=== PATIENT | female | born 1980 | race American Indian/Alaskan Native ===

== ENCOUNTER 2016-11-27 11:43 | Inpatient (IN) | payer OTHER ==
[2016-11-27 12:34] LABS: Basophils % (Auto) 0.4 % (0.0-1.8); Eosinophils % (Auto) 1.5 % (0.0-4.3); Mean Corpuscular HGB Conc 30 % (30-34); Platelet Count 204 K/mm3 (140-440); Red Blood Count 3.05 M/mm3 (3.65-5.03); White Blood Count 6.6 K/mm3 (4.5-11.0)
[2016-11-27 13:01] LABS: Hematocrit 19.1 % (30.3-42.9); Hemoglobin 5.8 gm/dl (10.1-14.3); Mean Corpuscular Hemoglobin 19 pg (28-32); Mean Corpuscular Volume 63 fl (79-97)
--- NOTE | 2016-11-27 17:14 | Emergency Department Report ---
ED General Adult HPI - General Chief complaint: Vaginal Bleeding Stated complaint: VAGINAL BLEEDING,DIZZY Time Seen by Provider: 11/27/16 16:30 Source: patient Mode of arrival: Ambulatory Limitations: No Limitations - History of Present Illness Initial comments: Patient states that for the last 3 weeks she has had recurrent vaginal bleeding although she is not actively bleeding at this time. She was previously seen and managed by my ROOM COOLER INSTALLER. She has had a previous transfusion at [facility]. She complains of generalized weakness and some dyspnea on exertion for the past few days. She has a history of fibroids. She has not had a prior surgical procedure. -: Gradual, week(s) Consistency: intermittent Improves with: none Worsens with: none Associated Symptoms: shortness of breath, weakness Treatments Prior to Arrival: none - Related Data Previous Rx's Medication Instructions Recorded Last Taken Type Ferrous Fumarate/Docusate(Nf) 1 each PO TID #90 tablet.er 08/19/13 Unknown Rx [Gordo-Sequels 106/50 mg tab] Allergies Allergy/AdvReac Type Severity Reaction Status Date / Time No Known Allergies Allergy Verified 11/27/16 11:49 ED Review of Systems ROS: Stated complaint: VAGINAL BLEEDING,DIZZY Other details as noted in HPI Constitutional: weakness. denies: chills, fever Eyes: denies: eye pain, eye discharge, vision change ENT: denies: ear pain, throat pain Respiratory: SOB with exertion. denies: cough, shortness of breath (not at rest ), wheezing Cardiovascular: denies: chest pain, palpitations Endocrine: no symptoms reported Gastrointestinal: denies: abdominal pain, nausea, diarrhea Genitourinary: denies: urgency, dysuria, discharge Musculoskeletal: denies: back pain, joint swelling, arthralgia Skin: denies: rash, lesions Neurological: denies: headache, weakness, paresthesias Psychiatric: denies: anxiety, depression Hematological/Lymphatic: denies: easy bleeding, easy bruising ED Past Medical Hx - Past Medical History Hx Hypertension: No Hx Heart Attack/AMI: No Hx Congestive Heart Failure: No Hx Diabetes: No Hx Deep Vein Thrombosis: No Hx Pulmonary Embolism: No Hx GERD: No Hx Liver Disease: No Hx Renal Disease: No Hx Sickle Cell Disease: No Hx Arthritis: No Hx Seizures: No Hx Kidney Stones: No Hx Asthma: No Hx COPD: No Hx Tuberculosis: No Hx Dementia: No Hx HIV: No - Surgical History Hx Coronary Stent: No Hx Open Heart Surgery: No Hx Pacemaker: No Hx Internal Defibrillator: No Hx Cholecystectomy: No Hx Appendectomy: No Hx Breast Surgery: No - Social History Smoking Status: Never Smoker Substance Use Type: None - Medications Home Medications: Home Medications Medication Instructions Recorded Confirmed Last Taken Type Ferrous Fumarate/Docusate(Nf) 1 each PO TID #90 tablet.er 08/19/13 Unknown Rx [Gordo-Sequels 106/50 mg tab] ED Physical Exam - General Limitations: No Limitations General appearance: alert, in no apparent distress - Head Head exam: Present: atraumatic, normocephalic - Eye Eye exam: Present: normal appearance. Absent: scleral icterus - ENT ENT exam: Present: mucous membranes moist - Neck Neck exam: Present: normal inspection - Respiratory Respiratory exam: Present: normal lung sounds bilaterally. Absent: respiratory distress - Cardiovascular Cardiovascular Exam: Present: regular rate, normal rhythm. Absent: systolic murmur, diastolic murmur, rubs, gallop - GI/Abdominal GI/Abdominal exam: Present: soft, normal bowel sounds. Absent: distended, tenderness, guarding, rebound, rigid - External exam: Present: other (deferred to ROOM COOLER INSTALLER) - Extremities Exam Extremities exam: Present: normal inspection - Back Exam Back exam: Present: normal inspection - Neurological Exam Neurological exam: Present: alert, oriented X3, CN II-XII intact. Absent: motor sensory deficit - Psychiatric Psychiatric exam: Present: normal affect, normal mood - Skin Skin exam: Present: warm, dry, intact, normal color. Absent: rash ED Course Vital Signs 11/27/16 11/27/16 11:49 16:35 Temperature 98.6 F Pulse Rate 95 H Respiratory 20 20 Rate Blood Pressure 116/53 O2 Sat by Pulse 100 100 Oximetry - Reevaluation(s) Reevaluation #1: Discussed with Dr. Willett, ROOM COOLER INSTALLER. She admitted this patient to her service for transfusion and further evaluation. 11/27/16 17:13 ED Medical Decision Making - Lab Data Result diagrams: 11/27/16 11:55 Laboratory Results - last 24 hr 11/27/16 11/27/16 11/27/16 11:55 11:55 11:59 WBC 6.6 RBC 3.05 L Hgb 5.8 L* Hct 19.1 L* MCV 63 L MCH 19 L MCHC 30 RDW 21.0 H Plt Count 204 Lymph % (Auto) 31.3 [place] % (Auto) 8.0 H Eos % (Auto) 1.5 Baso % (Auto) 0.4 Lymph # 2.1 [place] # 0.5 Eos # 0.1 Baso # 0.0 Seg Neutrophils % 58.8 Seg Neutrophils # 3.9 HCG, Quant < 2 Blood Type O NEGATIVE Antibody Screen Negative Critical care attestation.: If time is entered above; I have spent that time in minutes in the direct care of this critically ill patient, excluding procedure time. ED Disposition Clinical Impression: Symptomatic anemia, Dysfunctional uterine bleeding Fibroids Qualifiers: Uterine leiomyoma location: unspecified location Qualified Code(s): D25.9 - Leiomyoma of uterus, unspecified Disposition: OP ADMIT IP TO THIS HOSP Is pt being admited?: No Does the pt Need Aspirin: No Condition: Stable Referrals: PRIMARY CARE, [Primary Care Provider] - 3-5 Days Time of Disposition: 17:15
[2016-11-27] MEDS ORDERED: NACL 0.9% 500 ML 500 ML IV ONE (17:18)
[2016-11-27 17:20] LABS: Bacteria,Urine 1+ /HPF (Negative); Bilirubin,Urine NEG (Negative); Blood,Urine LG (Negative); Ketones,Urine NEG (Negative); Leukocyte Esterase,Urine NEG (Negative); Mucus,Urine FEW /HPF; Nitrite,Urine NEG (Negative); Protein,Urine <15 mg/dL mg/dL (Negative); Urobilinogen,Urine < 2.0 mg/dL (<2.0)
[2016-11-27 19:03] LABS: INR 1.02 (0.87-1.13); Partial Thromboplastin Time 21.6 Sec. (24.2-36.6)
[2016-11-27 19:35] LABS: Alanine Aminotransferase 12 units/L (7-56); Albumin 3.8 g/dL (3.9-5); Alkaline Phosphatase 63 units/L (35-129); Anion Gap 15 mmol/L; BUN/Creatinine Ratio 8.33; Blood Urea Nitrogen 5 mg/dL (7-17); Calcium 8.6 mg/dL (8.4-10.2); Carbon Dioxide 26 mmol/L (22-30); Chloride 101.4 mmol/L (98-107); Glucose 86 mg/dL (65-100); Potassium 4.7 mmol/L (3.6-5.0); Sodium 138 mmol/L (137-145); Total Protein 7.7 g/dL (6.3-8.2)
[2016-11-27] MEDS ORDERED: BENADRYL PO PRN ×2 (20:25→20:33)
[2016-11-27] MEDS ORDERED: COLACE PO PRN (20:25)
[2016-11-27] MEDS ORDERED: MYLICON PO PRN (20:25)
[2016-11-27] MEDS ORDERED: MILK OF MAGNESIA PO PRN (20:25)
[2016-11-27] MEDS ORDERED: ALUM-MAG HYDROX-SIMETH 200-200-20MG/5ML PO PRN (20:25)
[2016-11-27] MEDS ORDERED: TYLENOL PO PRN (20:25)
--- NOTE | 2016-11-27 20:29 | History and Physical Report ---
History of Present Illness Date of examination: 11/27/16 Date of admission: 11/27/16 17:16 Chief complaint: Dysfunctional uterine bleeding History of present illness: This is a 36-year-old female 1 para 1 who presents to long history of irregular vaginal bleeding. She has a known history of anemia and uterine fibroids. She was previously placed on oral contraceptive pills to control her bleeding however she discontinued the pills when she states her periods became regular. She presents now with some shortness of breath, dizziness, lightheadedness and fatigue. Since her period started 3 weeks ago and she is continued to bleed saturating a pad every 30 minutes for the last 2-1/2 weeks. She also complains of headache. She also states her bleeding is much better today. Her evaluation today reveals a hemoglobin of 5.8. She is admitted for transfusion of packed red blood cells. 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 denies: abnormal PAP smear, chlamydia, gonorrhea, hepatitis B, hepatitis C, herpes, HIV, syphilis, trichomonas Family/Genetic History: other (paternal aunt ovarian cancer diagnosed in menopause) Social history: no significant social history Medications and Allergies Allergies Allergy/AdvReac Type Severity Reaction Status Date / Time No Known Allergies Allergy Verified 11/27/16 11:49 Home Medications Medication Instructions Recorded Confirmed Last Taken Type RX: Ferrous Fumarate/Docusate(Nf) 1 each PO TID #90 tablet.er 08/19/13 Unknown Rx [Gordo-Sequels 106/50 mg tab] Review of Systems All systems: negative Neurological: headaches - Vital Signs Vital signs: Vital Signs Temp Pulse Resp BP Pulse Ox 98.6 F 95 H 20 116/53 100 11/27/16 11:49 11/27/16 11:49 11/27/16 11:49 11/27/16 11:49 11/27/16 11:49 Temp Pulse Resp BP Pulse Ox 98.4 F 62 18 107/58 100 11/27/16 19:20 11/27/16 19:20 11/27/16 19:20 11/27/16 19:20 11/27/16 19:20 - Physical Exam Breasts: Positive: deferred Lungs: Positive: Normal air movement Abdomen: Positive: normal appearance, soft (obese) Genitourinary (Female): Positive: normal external genitalia, normal perenium Vulva: both: normal Uterus: Positive: other (difficult to palpate due to body habitus) Extremities: Positive: normal Results Result Diagrams: 11/27/16 11:55 11/27/16 18:06 Abnormal lab results 11/27/16 11/27/16 Range/Units 18:06 18:06 APTT 21.6 L (24.2-36.6) Sec. BUN 5 L (7-17) mg/dL Creatinine 0.6 L (0.7-1.2) mg/dL Albumin 3.8 L (3.9-5) g/dL All other labs normal. Assessment and Plan - Patient Problems (1) Dysfunctional uterine bleeding Current Visit: Yes Status: Acute Plan to address problem: Will start Provera (2) Fibroids Current Visit: Yes Status: Acute Qualifiers: Uterine leiomyoma location: unspecified location Qualified Code(s): D25.9 - Leiomyoma of uterus, unspecified (3) Symptomatic anemia Current Visit: Yes Status: Acute Plan to address problem: Recheck H&H 2 hours after transfusion is complete. (4) Elevated blood pressure reading Current Visit: Yes Status: Acute
[2016-11-27] MEDS: LACTATED RINGERS 1,000 ML IV SCH (21:16)
[2016-11-27] MEDS ORDERED: PROVERA PO SCH (22:00)
[2016-11-27 23:01] LABS: Hematocrit 23.3 % (30.3-42.9); Hemoglobin 7.2 gm/dl (10.1-14.3)
[2016-11-28 05:02] VITALS: BP 103/50
[2016-11-28] MEDS: LACTATED RINGERS 1,000 ML IV SCH (06:04)
--- NOTE | 2016-11-28 06:23 | Event Note ---
Date: 11/28/16 (discharge assessment) pt w/o complaint VSS Minimal bleeding noted on pad. No c/o s/sx of anemia Pt ambulates w/o dizziness. Post transfusion H&H 10/06 Pt to be d/c with instructions and RX for iron, colace, and Sprintec Pt is to start OCP tonight. F/u in office in 2 weeks. All questions addressed.
--- NOTE | 2016-11-28 06:28 | Discharge Summary ---
Providers - Providers Date of Admission: 11/27/16 17:16 Date of discharge: 11/28/16 (pt agrees with d/c) Attending physician: MARLON RUIZ Primary care physician: SALES OPERATIONS MANAGER Hospitalization Condition: Good Hospital course: pt presented with heavy prolong menses, over the last several weeks. H&H was Decision was made to admit for transfusion of PRC. Pt states she feels much better now. Will d/c with RX for OCP to start tonight, po iron, and stool softener. Disposition: DC-01 TO HOME OR SELFCARE - Discharge Diagnoses (1) Dysfunctional uterine bleeding Status: Acute Comment: start OCP to regulate cycle (2) Anemia, chronic disease Status: Chronic Comment: rx iron Core Measure Documentation - Palliative Care Palliative Care/ Comfort Measures: Not Applicable - Core Measures Any of the following diagnoses?: none - VTE Discharge Requirements Deep Vein Thrombosis/Pulmonary Embolism Present on Admission: No Has pt received <5 days of overlap therapy or INR<2.0: No Anticoagulant overlap therapy prescribed at discharge: No Contraindication No Overlap Therapy order at DC: Not Indicated - Acute DC Discharge Requirements Aspirin at discharge: No Reason for no aspirin on DC: Patient refusal JACQUELINE/ARB for LVSD if EF <40%: Not Applicable Reason for no JACQUELINE/ARB: Patient refusal Beta ilia at discharge: No Reason for no beta ilia on DC: Patient refusal Statin for LDL = or >100 mg/dl on DC: Not Applicable Reason for no statin on DC: Patient refusal - Heart Failure Discharge Requirements JACQUELINE/ARB for LVSD if EF <40%: Not Applicable Reason for no JACQUELINE/ARB: Patient refusal Beta ilia at discharge: No Reason for no beta ilia on DC: Patient refusal - Stroke Discharge Requirements Statin for LDL = or >70 mg/dl on DC: Not Applicable Reason for no statin on DC: Not Indicated Anticoag for atrial fib/atrial flutter: Not Applicable Reason for no anticoag for AF/F on DC: Not Indicated Antithrombotic for ischemic stroke: No Reason for no antithrombotic on DC: Not Indicated Exam - Constitutional Vitals: Temp Pulse Resp BP Pulse Ox 98.6 F 64 18 103/50 100 11/28/16 04:25 11/28/16 04:25 11/28/16 04:25 11/28/16 04:25 11/27/16 19:20 General appearance: Present: no acute distress, well-nourished - EENT Eyes: Present: PERRL ENT: hearing intact, clear oral mucosa - Neck Neck: Present: supple, normal ROM - Respiratory Respiratory effort: normal Respiratory: bilateral: CTA - Cardiovascular Heart Sounds: Present: S1 & S2. Absent: rub, click - Extremities Extremities: pulses symmetrical, No edema Peripheral Pulses: within normal limits - Abdominal General gastrointestinal: Present: deferred - Rectal Rectal Exam: deferred - Integumentary Integumentary: Present: clear, warm, dry - Musculoskeletal Musculoskeletal: gait normal, strength equal bilaterally - Psychiatric Psychiatric: appropriate mood/affect, intact judgment & insight - Neurologic Neurologic: CNII-XII intact, moves all extremities Plan Activity: no restrictions Weight Bearing Status: Full Weight Bearing Diet: regular, other (increase dietary iron) Follow up with: PRIMARY CARE,MD [Primary Care Provider] - 3-5 Days SHUBHAM CORONA CNM [Advanced Practice Nurse] - 14 Days (Please call [phone] to schedule a follow up appointment in 2 weeks. Start your control pills tonight and take one every night before bed. Take other medications as prescribed. Call with concerns.) Prescriptions: Docusate Sodium [Colace] 100 mg PO BID PRN #60 capsule PRN Reason: Constipation Ferrous Sulfate [Feosol 325 MG tab] 325 mg PO BID #60 tablet Norgestimate-Ethinyl Estradiol [Sprintec 28 Day Tablet] 1 each PO QDAY #1 package
== END 2016-11-28 09:30 | disposition home or self-care (01) | DRG 761 ==
LOC: ED 11:43 → OB 17:16
PROVIDERS: ADMIT Obstetrics & Gynecology; ATTEND Obstetrics & Gynecology
PROC: 30233N1 Transfusion of Nonautologous Red Blood Cells into Peripheral Vein, Percutaneous Approach (ICD-10-PCS; principal; 2016-11-27)
DX: N93.8 Other specified abnormal uterine and vaginal bleeding (principal); D25.9 Leiomyoma of uterus, unspecified; D63.8 Anemia in other chronic diseases classified elsewhere
CPT/HCPCS: 36415; 80053; 81001; 84702; 85014; 85018; 85025; 85610; 85730; 86850; 86900; 86901; 86920; 99285; J7040; J7120; P9016